=== PATIENT | male | born 1945 | race Caucasian/White ===

== ENCOUNTER 2018-05-20 07:25 | Day surgery (SDC) | payer BC ==
[2018-05-20] VITALS (11 sets, daily range): BP systolic 109–174; BP diastolic 67–111; PULSE 63–81; TEMP 97.9
[~2018-05-20] VITALS: Ht 176.5 cm; Wt 124.0 kg
[~2018-05-20 07:25] MED LIST: ASPIR-LOW81 MG PO; BENICAR; BENICAR 20MG TA20 MG PO; BETIMOL 0.5% OPH5 ML OU; FLOMAX 0.40.4 MG/CAP PO; GLUCOSAMINE/CHONDROI; HCTZ; IBUPROFEN400 MG PO; LEXAPRO20 MG PO; LUMIGAN EYE GTTS OP; NORVASC10 MG PO; PRILOSEC 20MG20 MG PO; TYLENOL W/COD1 UDTAB PO; XALATAN EYE DROPS OU
[2018-05-20 08:27] LABS: HEMATOCRIT 42.6 % (42.0-52.0); HEMOGLOBIN 14.4 g/dl (13.5-18.0); MEAN CELL VOLUME 98 fl (80.0-100.0); MEAN CORPUSCULAR HEMOGLOBIN 33 pg (27.0-31.0); MEAN CORPUSCULAR HGB CONC 34 g/dl (33.0-37.0); MEAN PLATELET VOLUME 9.1 fl (7.4-10.4); PLATELET COUNT 205 K/mm3 (130-400); RED BLOOD COUNT 4.33 M/mm3 (4.20-5.60); REDCELL DISTRIBUTION WIDTH-CV 12.2 % (11.5-14.5)
[2018-05-20 08:33] LABS: INR 1.1 (0.8-3.0); PROTHROMBIN TIME 12.2 SECONDS (9.7-12.8)
[2018-05-20 08:38] LABS: CALCIUM 8.8 mg/dL (8.4-10.2); CREATININE, serum 0.87 (0.66-1.25)
[2018-05-20] MEDS ORDERED: KRILL OIL 1,001 EAC1 PO (09:14)
[2018-05-20] MEDS ORDERED: AZOR 10 MG-20 M1 TAB PO (09:15)
[2018-05-20] MEDS ORDERED: ZEBETA10 MG PO (09:16)
[2018-05-20] MEDS ORDERED: WELLBUTRIN XL300 M1 PO (09:17)
[2018-05-20] MEDS ORDERED: REVATIO20 MG PO (09:20)
[2018-05-20] MEDS ORDERED: CENTRUM SILVER1 CTB PO (09:21)
[2018-05-20] MEDS ORDERED: LUTEIN20 M1 PO (09:22)
[2018-05-20] MEDS ORDERED: PRESERVISION1 SGL PO (09:22)
[2018-05-20] MEDS ORDERED: TYLENOL 325MG325 MG PO (09:26)
--- NOTE | 2018-05-20 09:35 | NUR ---
ALL MEDICATIONS GIVEN VORB WITH MD. SEE MERGE FOR ALL MEDICATION ADMIN TIMES. SEE MERGE FOR ALL RASS ASSESSMENTS DURING AND POST PROCEDURE. POSITIVE BARBEAU'S TEST IN THE RIGHT WRIST.
--- NOTE | 2018-05-20 09:55 | NUR ---
Initial visit; Patient and his thanked Meat Stringer for looking in on Stuart prior to his Procedure and wishing him well and offering God's blessings.
[2018-05-20] MEDS ORDERED: LIPITOR 40MG TA40 MG PO (10:22)
[2018-05-20] MEDS ORDERED: ASPIRIN 81M81 MG/TA2 PO (10:23)
--- NOTE | 2018-05-20 10:40 | NUR ---
Pt returned to EU 12 per bed s/p heart cath. Pt resting well, at bedside.
--- NOTE | 2018-05-20 13:10 | NUR ---
Radial band removed, site remains soft, C/D/I, covered with bandaid and gauze and wrapped with coban. Pt agnes well.
--- NOTE | 2018-05-20 13:40 | NUR ---
Pt has ambulated, voided and agnes PO intake s n/v. PIV removed with catheter intact.
--- NOTE | 2018-05-20 13:55 | NUR ---
Pt discharged per w/c by nurse with .
== END 2018-05-20 16:16 | disposition home or self-care (01) ==
LOC: COL.CAR 07:25
PROVIDERS: Internal Medicine Cardiovascular Disease
DX: I25.10 Atherosclerotic heart disease of native coronary artery without angina pectoris (principal); R94.39 Abnormal result of other cardiovascular function study
CPT/HCPCS: C1769; J1644; J2250; J3010; Q9967

== ENCOUNTER → 2019-04-13 | Outpatient (CLI) | payer MEDICARE ==
[~2019-04-13] VITALS: Ht 176.5 cm; Wt 122.7 kg
[~2019-04-13] MED LIST changes: +AREDS2 PO; +ASPIRIN 81M81 MG/TA2 PO; +AZOR 10 MG-20 M1 TAB PO; +CENTRUM SILVER1 CTB PO; +DIPROSONE CR 45GM TP; +ECHINACEA400 MG PO; +KRILL OIL 1,001 EAC1 PO; +LIPITOR 40MG TA40 MG PO; +LUTEIN20 M1 PO; +PRESERVISION1 SGL PO; +PROBIOTIC-SUNMARK PO; +PROVENTIL0.09 MG/A1 IH; +REVATIO20 MG PO; +TYLENOL 8 HR PO; +ULTRAM 50MG TAB50 MG PO; +VESICARE 5MG5 MG PO; +VITAMIND3 5000 PO; +WELLBUTRIN XL300 M1 PO; +ZEBETA10 MG PO
[2019-04-13 09:17] VITALS: BP 140/90; PULSE 68
[2019-05-01 09:46] VITALS: BP 138/76; PULSE 64
== END ==
LOC: LIGHT 08:56
DX: Z68.39 Body mass index [BMI] 39.0-39.9, adult (principal); I10 Essential (primary) hypertension; K44.9 Diaphragmatic hernia without obstruction or gangrene
CPT/HCPCS: G0463

== ENCOUNTER → 2019-08-03 | Outpatient (CLI) | payer MEDICARE ==
[~2019-08-03] VITALS: Ht 176.5 cm; Wt 123.6 kg
[2019-08-03 14:37] VITALS: BP 126/72; PULSE 60
== END ==
LOC: LIGHT 05-18 10:56
DX: E66.8 Other obesity (principal); Z68.39 Body mass index [BMI] 39.0-39.9, adult; I10 Essential (primary) hypertension
CPT/HCPCS: G0463

== ENCOUNTER 2019-08-23 10:01 | Inpatient (IN) | payer MEDICARE ==
[~2019-08-23] VITALS: Ht 175.3 cm; Wt 122.6 kg
[2019-08-23 12:11] LABS: BASO % 0.2 % (0.0-2.0); EOS % 0.1 % (0-4.0); GRAN # 9.4 (1.4-6.5); GRAN % 82.7 % (42.2-75.2); HEMOGLOBIN 13.7 g/dl (13.5-18.0); LYMPH # 0.6 (1.2-3.4); LYMPH % 4.9 % (20.0-51.0); MEAN CELL VOLUME 98 fl (80.0-100.0); MEAN CORPUSCULAR HEMOGLOBIN 33 pg (27.0-31.0); MEAN CORPUSCULAR HGB CONC 33 g/dl (33.0-37.0); MEAN PLATELET VOLUME 9.4 fl (7.4-10.4); MONO # 1.3 (0.1-0.6); MONO % 11.2 % (1.7-9.3); PLATELET COUNT 201 K/mm3 (130-400); RED BLOOD COUNT 4.18 M/mm3 (4.20-5.60); REDCELL DISTRIBUTION WIDTH-CV 12.3 % (11.5-14.5)
[2019-08-23 12:19] LABS: ALBUMIN 4.3 gm/dL (3.5-5.0); BILIRUBIN,TOTAL 1.1 mg/dL (0.0-1.0); CALCIUM 9.3 mg/dL (8.4-10.2); CREATININE, serum 1.24 (0.66-1.25); POTASSIUM 3.8 mmol/L (3.4-5.0); TOTAL PROTEIN 7.7 gm/dL (6.4-8.2)
[2019-08-23] MEDS ORDERED: AMITRIPTYLINE H25 M1 (12:27)
[2019-08-23 13:00] LABS: COLLECTION METHOD CLEAN CATCH
[2019-08-23 13:09] LABS: MUCOUS Present /lpf; PH 5 (5-8); SQUAMOUS EPITHELIAL None Seen /hpf; URINE APPEARANCE Hazy; URINE BACTERIA None Seen /hpf; URINE BILIRUBIN Negative (NEGATIVE); URINE BLOOD Negative (NEGATIVE); URINE COLOR Amber; URINE GLUCOSE Negative (NEGATIVE); URINE KETONE Trace (NEGATIVE); URINE LEUKOCYTE ESTERASE Negative (NEGATIVE); URINE NITRATE Negative (NEGATIVE); URINE PROTEIN(semi-quant) 1+ (NEGATIVE); URINE RBC 0-2 /hpf; URINE UROBILINOGEN >=4.0 mg/dL (NEGATIVE)
--- NOTE | 2019-08-23 18:34 | NUR ---
PT SETTLED IN BED, SAYS PAIN IS WORSE ONLY DUE TO TRANSFER BUT WITH REST IT GETS BETTER. SMALL BRUISE ON R BUTTOCK, SOME BRUISING ON LEFT SIDE. PT PLEASANT, AT BEDSIDE, TAKING MEDICATIONS HOME, NO OTHER NEEDS AT THIS TIME.
--- NOTE | 2019-08-23 19:04 | NUR ---
orthostatic bp's performed. supine 134/84, sitting 137/82, standing 112/69
[2019-08-23 19:05] VITALS: BP 112/69; BP 134/84; BP 137/82; PULSE 101; PULSE 114; PULSE 91
[2019-08-23 20:46] VITALS: BP 103/61; PULSE 104; TEMP 98.9
[2019-08-24] VITALS: BP 132/74; PULSE 93; TEMP 98.3
[2019-08-24 04:32] VITALS: BP 134/82; PULSE 87; TEMP 98.8
--- NOTE | 2019-08-24 04:36 | NUR ---
Pt HAS BEEN IN A POSITIVE MOOD THIS SHIFT BUT HAS CONFUSION AT TIMES REGARDING PLACE AND/OR SITUATION. Pt HAS TRIGGERED HIS BED ALARM TWICE DUE TO THIS CONFUSION WITH THE LAST EPISODE RELATED TO Pt STATING THAT THERE IS PIZZA AT THE DOOR AND HE NEEDS TO GET UP TO GET IT FROM THE GYM MANAGER. Pt REORIENTED, ASSISTED WITH THE URINAL WITH NO RESULTS, AND HELPED BACK INTO BED. Pt REPOSITIONED HIGHER UP IN BED FOR COMFORT. CALL LIGHT REMAINS AT HIS SIDE AND BEVERAGE AVAILABLE AND WITHIN REACH. WILL CONTINUE TO MONITOR. Pt REMAINS IN STABEL CONDITION AT THIS TIME WITH NO S/S OF DISTRESS NOTED.
--- NOTE | 2019-08-24 06:32 | NUR ---
Pt RESTIGN IN BED PEACEFULLY AT THIS TIME WITH HALLUCINATIONS REPORTED AND OBSERVED THORUGHOUT THE SHIFT. Pt HAS FORGOTTEN THAT HIS SPOUSE WAS PRESENT LAST NIGHT, THAT HE ATE DINNER, THAT HE WAS IN THE HOSPITAL ETC AND HAS BEEN TALKING TO HIS SPOUSE IF SHE WAS IN THE ROOM WHEN SHE IS NOT. EARLIER Pt STATED "I THINK I AM HALLUCINATING" AND Pt WAS REASSURED THAT HE WAS SAFE, HE WAS WHERE HIS SPOUSE KNEW HE WAS AT, AND THAT THIS BUSINESS CONSULTANT WAS HERE TO MAKE SURE HE WAS OK AND SAFE. NO S/S OF DISTRESS NOTED AT THIS TIME. CALL LIGHT AND BEVERAGE WITHIN REACH, WILL CONTINUE TO MONITOR.
--- NOTE | 2019-08-24 07:08 | NUR ---
PT ON THE PHONE WITH AT TIME OF REPORT. PT APPEARS SLIGHTLY CONFUSED, DENIES PAIN OR DISCOMFORT.
[2019-08-24 07:58] VITALS: BP 146/92; PULSE 91; TEMP 98
[2019-08-24 08:20] LABS: BASO % 0.2 % (0.0-2.0); EOS % 0.4 % (0-4.0); GRAN # 6.2 (1.4-6.5); GRAN % 77.1 % (42.2-75.2); HEMATOCRIT 40.8 % (42.0-52.0); HEMOGLOBIN 13.6 g/dl (13.5-18.0); LYMPH # 0.7 (1.2-3.4); LYMPH % 8.9 % (20.0-51.0); MEAN CELL VOLUME 98 fl (80.0-100.0); MEAN CORPUSCULAR HEMOGLOBIN 33 pg (27.0-31.0); MEAN CORPUSCULAR HGB CONC 33 g/dl (33.0-37.0); MEAN PLATELET VOLUME 9.2 fl (7.4-10.4); MONO % 12.3 % (1.7-9.3); PLATELET COUNT 199 K/mm3 (130-400); RED BLOOD COUNT 4.16 M/mm3 (4.20-5.60); REDCELL DISTRIBUTION WIDTH-CV 12.3 % (11.5-14.5)
[2019-08-24 08:46] LABS: CALCIUM 9.1 mg/dL (8.4-10.2); CREATININE, serum 1.02 (0.66-1.25); MAGNESIUM 2.1 mg/dL (1.6-2.3); POTASSIUM 3.4 mmol/L (3.4-5.0)
--- NOTE | 2019-08-24 09:44 | NUR ---
PT ALERT TO SELF AND CURRENT YEAR BUT NOT PLACE OR CURRENT DAY. PT THOUGHT HE WAS IN [place] AND THEN SAID "IF NOT THERE THEN WE'RE IN [place]". FOLLOWING UP ON THIS PT SAID "I SAW THE TANNER AND WHEN I WAS EATING MY BREAKFAST. WHAT ARE THEY DOING IN [place]?". INFORMED PT THAT THEY WERE NOT HERE, PT APPEARS FRUSTRATED AND CONFUSED THAT HE IS SEEING THINGS THAT OTHERS DO NOT. PT COMPLAINS OF SOME PAIN BUT DID NOT WANT PAIN MEDICAITION AT THIS TIME. ANNY, PT , CALLED EARLIER IN DAY, INFORMED DOCTOR SHE WANTS TO BE CALLED WHEN HE IS SEEING THE PT. PT TOOK MEDS, ASSESSMENT PERFORMED, NEW FLUIDS HUNG. EEG PERFORMED THIS MORNING. NO OTHER NEEDS AT THIS TIME.
[2019-08-24 12:25] VITALS: BP 125/69; PULSE 84; TEMP 98.4
--- NOTE | 2019-08-24 14:32 | NUR ---
PT PULLED OUT IV TRYING TO GET OUT OF BED. PT PUT BACK INTO BED, IV PLACED INTO RFA, FLUIDS ATTACHED, CALLED PT'S TO HELP HIM STAY ORIENTED AND IN BED. TYLENOL GIVEN TO FOR PT PAIN.
--- NOTE | 2019-08-24 15:13 | NUR ---
Plastics Technician contacted patient's , Tran (ph#[phone]) to discuss discharge planning as patient has been confused. Patient lives in [place] with Tran and sees Dr. Brown for primary care. Patient has medications delivered to his home by [facility]. Kimberlee does not have Advance Directives in EMR. Patient has a CPAP but doesn't use it as often now that he has a bed that lifts his head up. Patient has a walker and walking stick at home, but Tran reports he rarely uses them. Tran reports patient has been falling at home recently. CARLA reviewed OT recommendation to consider post acute rehab. Tran states she would like referrals sent to [facility] and [facility]. CARLA contacted Milady [facility] Director to give referral. CARLA contacted Saskia at [facility] and faxed referral. CARLA collaborated with CAROLINA Elam to order COVID test. CARLA will continue to follow.
--- NOTE | 2019-08-24 16:01 | NUR ---
PT HAD SCD'S ON ALL DURING THE DAY, TAKEN OFF TO WORK WITH PT, PT WANTING A BREAK FROM THEM FOR A LITTLE BIT.
[2019-08-24 16:20] VITALS: BP 130/77; PULSE 82; TEMP 98.2
--- NOTE | 2019-08-24 17:23 | NUR ---
PT LAYING IN BED, AT BEDSIDE, PT NOT COMPLAINING OF PAIN AT THIS TIME. PT PLEASANT, STILL CONFUSED, NO OTHER NEEDS AT THIS TIME.
[2019-08-24 19:24] VITALS: BP 106/82; PULSE 76; TEMP 98.3
--- NOTE | 2019-08-24 21:15 | NUR ---
Pt resting in bed at this time. at bedside. Pt alert and oriented to self and time. Pt disoriented to place and situation. Pt states he is having 9/10 constant pain to his left side described at "shooting". IVF infusing per orders to right forearm IV site. Pt denies any other needs at this time. Fall precautions in place. Bed alarm on. Call light within reach. Will continue to monitor.
[2019-08-25] VITALS (9 sets, daily range): BP systolic 116–154; BP diastolic 76–103; PULSE 77–110; TEMP 97.6–98.7
--- NOTE | 2019-08-25 05:14 | NUR ---
Pt unable to rest throughout the night. PT continuously trying to get out of bed to "go to the other room" at this time. When asking pt where he is at, pt states he is in a hotel. Pt reoriented to place. Continued to be alert and oriented to person and time and disoriented to place and situation throughout shift. Complaints to pain to left side throughout the night. PRN pain medications given per orders. IVF infusing per order to right forearm IV site. Pt denies any other needs. at bedside. Fall precautions in place. Bed alarm on. Call light within reach. Will continue to monitor.
[2019-08-25 06:25] LABS: BASO % 0.3 % (0.0-2.0); EOS # 0.1 (0.0-0.7); EOS % 0.9 % (0-4.0); GRAN # 4.6 (1.4-6.5); GRAN % 70.7 % (42.2-75.2); HEMATOCRIT 38.2 % (42.0-52.0); HEMOGLOBIN 12.4 g/dl (13.5-18.0); LYMPH # 0.9 (1.2-3.4); MEAN CELL VOLUME 99 fl (80.0-100.0); MEAN CORPUSCULAR HEMOGLOBIN 32 pg (27.0-31.0); MEAN CORPUSCULAR HGB CONC 33 g/dl (33.0-37.0); MEAN PLATELET VOLUME 9.3 fl (7.4-10.4); MONO # 0.9 (0.1-0.6); PLATELET COUNT 207 K/mm3 (130-400); RED BLOOD COUNT 3.87 M/mm3 (4.20-5.60); REDCELL DISTRIBUTION WIDTH-CV 12.3 % (11.5-14.5)
[2019-08-25 06:38] LABS: ALBUMIN 3.9 gm/dL (3.5-5.0); BILIRUBIN,TOTAL 0.7 mg/dL (0.0-1.0); CALCIUM 9.1 mg/dL (8.4-10.2); CREATININE, serum 0.82 (0.66-1.25); MAGNESIUM 1.9 mg/dL (1.6-2.3); POTASSIUM 3.7 mmol/L (3.4-5.0); TOTAL PROTEIN 7.1 gm/dL (6.4-8.2)
[2019-08-25 07:06] LABS: ERYTHROCYTE SEDIMENTATION RATE 35 mm/hr (0-30)
--- NOTE | 2019-08-25 07:12 | NUR ---
report given to MARCOS Mak
--- NOTE | 2019-08-25 08:15 | NUR ---
Patient alert o name, , location, confused on which city he was in. at the bedside. Reporting increased confusion. side at the bedside overnight and during the day. Denies pain and discomfort. IV CDI, fluids infusing. Fall precautions in place bed alarm on. has questions answered by the nurse and doctor. Call light within reach. No further needs expressed from patient.
--- NOTE | 2019-08-25 12:31 | NUR ---
Patient taken by cart to MRI
--- NOTE | 2019-08-25 15:46 | NUR ---
Relief Driller spoke with Milady, [facility] Director who advised they do not have a bed at this time. CARLA spoke with Miquel at [facility] who advised they are able to follow referral but feel patient may need allan psych prior to SNF. CARLA faxed updates to Miquel at [facility]. CARLA followed up with patient's who would like referrals sent to [facility] [place] and [facility]. CARLA contacted Shahab at [facility] and Bob at [facility] then faxed referrals. Sahhab at [facility] advised they are able to accept and could accept over the weekend. CARLA provided this update to patient's and patient. SW will continue to follow.
--- NOTE | 2019-08-25 16:00 | NUR ---
Helmet Hat Sweatband Puncher was notified by Bob at [facility] that they are able to accept referral. SW will continue to follow.
--- NOTE | 2019-08-25 18:22 | NUR ---
Pt appears to be more lucid this afternoon. Pt's states he is making more sense. Pt currently denies any pain. Has been getting up out of bed with assistance of one. No needs at this time. at bedside. Will continue to monitor.
--- NOTE | 2019-08-25 20:46 | NUR ---
Pt assessment completed and documented. Pt sitting up in bed watching television. at bedside. Pt alert and oriented x4. Pt denies pain at this time. INT to right forearm patent and intact. When attempting to swallow lipitor, pt had coughing fit and coughed pill back up. Pt quickly recovered and was able to swallow pill. Lungs CTA. Pt denies any other needs at this time. Call light within reach. Fall precautions in place. Bed alarm on. Will continue to monitor.
[2019-08-26 00:31] VITALS: BP 139/101; PULSE 82; TEMP 98.4
[2019-08-26 01:28] VITALS: BP 136/86
[2019-08-26 03:59] VITALS: BP 160/96; PULSE 80; TEMP 97.6
--- NOTE | 2019-08-26 05:50 | NUR ---
Pt had uneventful shift. Pt rested well and has been oriented x4 thoughout the night. PRN tylenol given per orders x1 for "left side" pain. INT to right forearm free of complications. at bedside. Pt denies any other needs at this time. Fall precautions in place. Bed alarm on. Call light within reach. Will continue to monitor.
--- NOTE | 2019-08-26 07:07 | NUR ---
REPORT GIVEN TO MARCOS GANDARA AND MARCOS TEMPLETON
[2019-08-26 07:38] VITALS: BP 140/85; PULSE 87; TEMP 98.1
[2019-08-26] MEDS ORDERED: ULTRAM 50MG TAB50 MG PO ×2 (11:37→11:40)
[2019-08-26 12:16] VITALS: BP 134/73; PULSE 75; TEMP 97.9
--- NOTE | 2019-08-26 15:32 | NUR ---
CARLA received word from medical nurse that patient was ready to be discharged. CARLA contacted Shahab with [facility] to arrange for Transport. supervisor toy assembly time was scheduled for 2:15. CARLA informed nurse at front medical desk of seed cone picker time.
--- NOTE | 2019-08-26 15:45 | NUR ---
Pt assessment completed and charted, alert and partially oriented, roomair. Morning meds provided as per APR, tolerated well. No N/V/D, pain, numbness, tingling. I/V line flushed well in the morning and taken out before pt transfering out. Transfer procedure completed and handover given by MARCOS Del Valle. Wheeled her down to the ER department by this nurse and MARCOS Del Valle.
== END 2019-08-26 14:40 | DRG 312 ==
LOC: COL.ER 10:01 → MEDICAL 17:32
PROVIDERS: Family Medicine; ADMIT Internal Medicine
DX: I95.1 Orthostatic hypotension (principal); S22.42XA Multiple fractures of ribs, left side, initial encounter for closed fracture; R44.3 Hallucinations, unspecified; N17.9 Acute kidney failure, unspecified; I10 Essential (primary) hypertension; I25.10 Atherosclerotic heart disease of native coronary artery without angina pectoris; F03.90 Unspecified dementia, unspecified severity, without behavioral disturbance, psychotic disturbance, mood disturbance, and anxiety; F32.9 Major depressive disorder, single episode, unspecified; N40.0 Benign prostatic hyperplasia without lower urinary tract symptoms; E78.5 Hyperlipidemia, unspecified
CPT/HCPCS: 99223-AI; 99232-AI; 99233-AI; 99239; A9284; A9585; J2270; J7030

== ENCOUNTER → 2019-09-14 | Outpatient (CLI) | payer MEDICARE ==
[~2019-09-14] VITALS: Ht 175.3 cm; Wt 117.7 kg
[~2019-09-14] MED LIST changes: +AMITRIPTYLINE H25 M1
[2019-09-14 09:41] VITALS: BP 110/70; PULSE 76
== END ==
LOC: LIGHT 09:36
DX: E66.8 Other obesity (principal); Z68.37 Body mass index [BMI] 37.0-37.9, adult; I10 Essential (primary) hypertension
CPT/HCPCS: G0463

== ENCOUNTER → 2019-10-26 | Outpatient (CLI) | payer MEDICARE ==
[~2019-10-26] VITALS: Ht 175.3 cm; Wt 122.2 kg
[2019-10-26 09:40] VITALS: BP 130/76; PULSE 60
== END ==
LOC: LIGHT 09:27
DX: E66.01 Morbid (severe) obesity due to excess calories (principal); Z68.39 Body mass index [BMI] 39.0-39.9, adult; I10 Essential (primary) hypertension
CPT/HCPCS: G0463

== ENCOUNTER → 2019-12-14 | Outpatient (CLI) | payer MEDICARE ==
[~2019-12-14] VITALS: Ht 175.3 cm; Wt 122.9 kg
[2019-12-14 10:09] VITALS: BP 117/80; PULSE 68
== END ==
LOC: LIGHT 08:26
DX: E66.01 Morbid (severe) obesity due to excess calories (principal); Z68.41 Body mass index [BMI] 40.0-44.9, adult; I10 Essential (primary) hypertension; M54.5 Low back pain
CPT/HCPCS: G0463

== ENCOUNTER → 2020-11-07 | Outpatient (CLI) | payer MEDICARE | LOC: COL.RAD 10-31 08:15 | DX: M48.02 Spinal stenosis, cervical region (principal); M47.812 Spondylosis without myelopathy or radiculopathy, cervical region ==

== ENCOUNTER 2021-02-19 13:45 | Outpatient (RCR) | payer MEDICARE | END 2021-02-21 | disposition home or self-care (01) | LOC: WSPT | DX: M51.36 Other intervertebral disc degeneration, lumbar region (principal) ==

== ENCOUNTER 2021-04-18 11:15 | Outpatient (RCR) | payer MEDICARE | END 2021-04-21 | disposition home or self-care (01) | LOC: WSPT | DX: M51.36 Other intervertebral disc degeneration, lumbar region (principal) ==

== ENCOUNTER 2021-05-20 09:45 | Outpatient (RCR) | payer MEDICARE | END 2021-05-22 | LOC: WSPT | DX: M51.36 Other intervertebral disc degeneration, lumbar region (principal) ==

== ENCOUNTER 2021-06-18 08:45 | Outpatient (RCR) | payer MEDICARE | END 2021-06-21 | disposition home or self-care (01) | LOC: WSPT | DX: M51.36 Other intervertebral disc degeneration, lumbar region (principal) ==

== ENCOUNTER 2021-07-16 09:00 | Outpatient (RCR) | payer MEDICARE | END 2021-07-16 15:02 | disposition home or self-care (01) | LOC: WSPT 09:00 | DX: M51.36 Other intervertebral disc degeneration, lumbar region (principal) ==

== ENCOUNTER → 2021-10-28 | Outpatient (CLI) | payer MEDICARE | LOC: COL.RAD 08:12 | DX: G31.9 Degenerative disease of nervous system, unspecified (principal); F02.80 Dementia in other diseases classified elsewhere, unspecified severity, without behavioral disturbance, psychotic disturbance, mood disturbance, and anxiety ==

== ENCOUNTER 2021-11-12 11:19 | Emergency (ER) | payer MEDICARE ==
[~2021-11-12] VITALS: Ht 177.8 cm; Wt 113.6 kg
[2021-11-12 11:25] VITALS: TEMP 100
[2021-11-12 11:41] LABS: COLLECTION METHOD CATHETER
[2021-11-12 11:46] LABS: BASO % 0.2 % (0.0-2.0); EOS % 0.2 % (0.0-4.0); GRAN # 12.7 K/mm3 (1.4-6.5); GRAN % 82.9 % (42.2-75.2); HEMATOCRIT 42.1 % (42.0-52.0); HEMOGLOBIN 14.5 g/dl (13.5-18.0); LYMPH # 1.2 K/mm3 (1.2-3.4); LYMPH % 7.6 % (20.0-51.0); MEAN CELL VOLUME 92 fl (80.0-100.0); MEAN CORPUSCULAR HEMOGLOBIN 32 pg (27-31); MEAN CORPUSCULAR HGB CONC 34 g/dl (33.0-37.0); MEAN PLATELET VOLUME 9.1 fl (7.4-10.4); MONO # 1.3 K/mm3 (0.1-0.6); MONO % 8.6 % (1.7-9.3); PLATELET COUNT 238 K/mm3 (130-400); RED BLOOD COUNT 4.56 M/mm3 (4.20-5.60); REDCELL DISTRIBUTION WIDTH-CV 13.1 % (11.5-14.5)
[2021-11-12 12:01] LABS: CALCIUM 9.3 mg/dL (8.4-10.2); CREATININE, serum 0.82 mg/dL (0.72-1.25); POTASSIUM 3.8 mmol/L (3.5-4.5)
[2021-11-12 12:05] LABS: SQUAMOUS EPITHELIAL None Seen /hpf (0-10); URINE BACTERIA None Seen /hpf (NONE SEEN)
[2021-11-12 12:06] LABS: PH 7.5 (5-8); URINE APPEARANCE Cloudy (CLEAR/HAZY); URINE COLOR Yellow (YELLOW); URINE GLUCOSE Negative (NEGATIVE); URINE KETONE Negative (NEGATIVE); URINE PROTEIN(semi-quant) Negative (NEGATIVE); URINE UROBILINOGEN 0.2 (NEGATIVE)
[2021-11-12 12:07] LABS: URINE BLOOD TRACE-INTACT (NEGATIVE); URINE NITRATE Positive (NEGATIVE)
[2021-11-12 12:09] LABS: TROPONIN-I 0.018 ng/mL (0.00-0.033)
[2021-11-12] MEDS ORDERED: CEPHALEXIN500 M1 PO (13:13)
[2021-11-12] MEDS ORDERED: ZOFRAN ODT4 MG PO (13:13)
[2021-11-12 13:24] VITALS: BP 118/76; PULSE 76
[2021-11-14] MEDS ORDERED: CIPRO 500MG TA500 MG PO (10:06)
== END 2021-11-12 13:25 | disposition home or self-care (01) ==
LOC: COL.ER 11:19
PROVIDERS: Emergency Medicine
DX: N30.00 Acute cystitis without hematuria (principal); R51.9 Headache, unspecified; R53.1 Weakness; Z20.822 Contact with and (suspected) exposure to COVID-19
CPT/HCPCS: J0696; J2765; J7030